=== PATIENT | male | born 1975 | race Caucasian/White ===

== ENCOUNTER 2020-05-03 08:50 | Emergency (ER) | payer SELFPAY ==
[2020-05-03] VITALS (7 sets, daily range): BP systolic 139–171; BP diastolic 70–103; PULSE 68–80; RESP 12–18; TEMP 36.6; O2SAT 93–100
--- NOTE | ~2020-05-03 | XR_ITS ---
EXAMINATION: XR chest 2V EXAM DATE: 05/03/2020 09:39 INDICATION: Right shoulder, right upper back pain. TECHNIQUE: Frontal and lateral projections of the chest obtained and reviewed. There is no prior wali dy for comparison. FINDINGS: The lungs are clear. There are no pleural effusions. The cardiomediastinal silhouette is within normal limits. There is no pneumothorax suspected. The bones and soft tissues are unremarkab le. IMPRESSION: No acute cardiopulmonary findings. Reviewed, dictated and finalized at location B. T PLACER
--- NOTE | ~2020-05-03 | CT_ITS ---
EXAMINATION: CT cervical spine wo con EXAM DATE: 05/03/2020 09:31 INDICATION: Cervical radiculopathy. Right arm numbness. TECHNIQUE: Spiral CT of the cervical spine was performed without contrast. Axial images were reviewe d. Coronal and sagittal reformatted images were also reviewed. The dose-length product (DLP) for thi s examination was 618.92 mGy-cm. The exposure was tailored according to patient size (auto mA exposu re control), and iterative reconstruction (ASIR) was used as additional dose reduction technique. ere is no prior study for comparison. FINDINGS: There is mild to moderate disc disease C3-T1, with regions of bulky hypertrophy of the pos terior longitudinal ligament, smaller regions of calcification. Hypertrophy is most pronounced chief technician ior to the C3 vertebral body where it is 3-4 mm in thickness, and the central canal is narrowed to 6 mm in AP dimension. The vertebral bodies are aligned in the AP dimension. Vertebral body heights are maintained. The odontoid process is intact. The lateral masses of C1 line up with C2. Prevertebral soft tissue and pre-dens space are within normal limits. There are no acute fractures identified. Level by level evaluation: C2-C3: There is a mild diffuse disc bulge. Uncovertebral joint arthropathy: Mild right. Facet joint arthropathy: Mild bilateral. Neural foraminal stenosis: No stenosis. Central canal stenosis: Mild. Central canal measures 7-8 mm in mid sagittal AP diameter. C3: Posterior longitudinal ligament hypertrophy with canal narrowing to 6 mm. C3-C4: There is a mild diffuse disc bulge. Uncovertebral joint arthropathy: Mild to moderate right. Facet joint arthropathy: Mild bilateral. Neural foraminal stenosis: Mild right. Central canal stenosis: Mild to moderate . Central canal measures 6 mm in mid sagittal AP diameter . C4-C5: There is a mild diffuse disc bulge. Uncovertebral joint arthropathy: Mild to moderate bilateral. Facet joint arthropathy: Mild to moderate bilateral. Neural foraminal stenosis: Mild to moderate left, mild right. Central canal stenosis: Mild . Central canal measures 8 mm in mid sagittal AP diameter . C5-C6: There is a mild diffuse disc bulge. Uncovertebral joint arthropathy: Mild bilateral. Facet joint arthropathy: Mild to moderate bilateral. Neural foraminal stenosis: Mild bilateral. Central canal stenosis: Mild . Central canal measures 7-8 mm in mid sagittal AP diameter . C6-C7: There is a mild diffuse disc bulge. Uncovertebral joint arthropathy: Mild bilateral. Facet joint arthropathy: Mild bilateral. Neural foraminal stenosis: Mild bilateral. Central canal stenosis: Mild . Central canal measures 7-8 mm in mid sagittal AP diameter . C7-T1: There is a mild diffuse disc bulge. Ossification posterior longitudinal ligament Uncovertebral joint arthropathy: Mild bilateral. Facet joint arthropathy: Mild bilateral. Neural foraminal stenosis: Mild bilateral. Central canal stenosis: Mild . Central canal measures 7 mm in mid sagittal AP diameter . IMPRESSION: 1. Mild to moderate central canal stenosis at C3-4 with bulky hypertrophy posterior longitudinal lig ament at this disc space and C3 level. 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 2. Left C4-5 neural foramina most narrowed on exam. 3. No acute findings. Reviewed, dictated and finalized at location B. NG COMMISSIONER IMPRESSION: 1. Mild to moderate central canal stenosis at C3-4 with bulky hypertrophy post erior longitudinal ligament at this disc space and C3 level. 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 2. Left C4-5 neural foramina most narrowed on exam. 3. No acute findings.
--- NOTE | 2020-05-03 08:56 | ED.UPPEXIN ---
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 Patient denies having similar symptoms, fever, chills, nausea, vomiting, headache, chest pain or back pain. Related Data Allergies Allergy/AdvReac Type Severity Reaction Status Date / Time No Known Allergies Allergy Verified 05/03/20 09:04 Review of Systems Review of Systems: Narrative: CONSTITUTIONAL: Denies fever, chills, or sweats. EYES: Denies visual changes, redness, or discharge. ENT: Denies rhinorrhea, congestion, sore throat, or otalgia. CARDIOVASCULAR: Denies chest pain, palpitations, or edema. RESPIRATORY: Denies cough or dyspnea. GASTROINTESTINAL: Denies abdominal pain, nausea, vomiting, or diarrhea. GENITOURINARY: Denies dysuria or hematuria. SKIN: Denies rash or itching. MUSCULOSKELETAL: Denies back pain, joint pain, or myalgia. NEUROLOGIC: Denies headache, numbness, or weakness. PSYCHIATRIC: Denies anxiety or depression. [facility] Social History Social History Gender identity (if verbalized by the patient): Male Exam Narrative: Exam Narrative: General appearance: Well-developed, well-nourished, looks in pain Skin: Normal color Head: Normocephalic, nontraumatic Eyes: Clear conjunctiva ENT: Oropharynx normal, ears normal, nose normal Neck: Supple, nontender Chest and respiratory: Airway patent, no respiratory distress, no accessory muscle use Heart: Regular rate/rhythm Vascular: Normal peripheral pulses, normal capillary refill. Musculoskeletal: Right upper extremity showed slight limited range of motion because of pain, diffuse pain right supraclavicular area and right upper back. No bruises, no swelling, no rash. Neurologic: Alert and oriented ?3, handgrip is 4 out of 5 of the right hand. Radial pulse is intact Course Course Emergency Course: Improving Reevaluation(s) Reevaluation #1: Improving Date: 05/03/20 Time: 10:26 Vital Signs Vital signs: Vital Signs Temperature 36.6 C 05/03/20 09:01 Pulse Rate 75 05/03/20 09:01 Respiratory Rate 18 05/03/20 09:01 Blood Pressure 171/103 H 05/03/20 09:01 Pulse Oximetry 100 05/03/20 09:01 Temperature 36.6 C 05/03/20 09:01 Pulse Rate 68 05/03/20 09:56 Respiratory Rate 17 05/03/20 09:56 Blood Pressure 139/99 H 05/03/20 09:56 Pulse Oximetry 100 05/03/20 09:56 MDM - Extremity Injury (Upper) MDM Narrative Medical decision making narrative: Right upper extremity pain radiating to the fingers, cervical radiculopathy is my concern. CT cervical spine, chest x-ray, IV Toradol, Dilaudid, Zofran and Decadron ordered. Further plan to follow Differential Diagnosis Differential diagnosis: Likely other (Cervical radiculopathy, musculoskeletal strain/sprain) Critical Care Time Critical Care Time Critical Care Time: Yes Total Critical Care Time: 30 Discharge Plan Discharge Clinical Impression: Cervical radiculopathy Patient Disposition: Home, Self-Care Condition: Stable Instructions: Cervical Radiculopathy (ED) Additional Instructions: Return if symptoms are worsening , call your family physician for appointment, take Tylenol as as needed for aches and pa
[2020-05-03] MEDS: HYDROmorphone HCL INJ (*CRX) 1 MG/ML SYR 0.5 MG IV PUSH (09:51)
[2020-05-03] MEDS: ONDANSETRON INJ 4 MG/2 ML VIAL IV PUSH (09:51)
[2020-05-03] MEDS: KETOROLAC 30 MG/ML VIAL (*BKC) IV PUSH (09:51)
== END 2020-05-03 10:55 | disposition home or self-care (01) ==
PROVIDERS: Emergency Provider Emergency Medicine
DX: M54.12 Radiculopathy, cervical region (principal)
CPT/HCPCS: 71046; 72125; 96374; 96375; 99284; J1100; J1170; J1885; J2405

== ENCOUNTER 2021-11-04 11:38 | Emergency (ER) | payer OTHER, SELFPAY ==
--- NOTE | ~2021-11-04 | CT_ITS ---
EXAMINATION: CT lumbar spine wo con DATE: 11/04/2021 12:12 INDICATION: Low back pain. Lower extremity weakness. TECHNIQUE: Computed tomography (CT) of the lumbar spine was performed without intravenous contrast. A utomated exposure control and iterative reconstruction technique were employed. The dose-length produ ct was 1270.49 mGy-cm. COMPARISON: None FINDINGS: There is 3 degrees dextrocurvature of lumbar spine. Vertebral body heights are normal. Ther e is mildly decreased disc height from L3-L4 through L5-S1. The following disc levels are specificall y discussed: L1-L2: The disc does not extend beyond the endplate margin. There is mild right and moderate left fac et joint osteoarthritis. There is no neural foraminal stenosis. There is no central canal stenosis. L2-L3: The disc is bulging. There is mild bilateral facet joint osteoarthritis. There is mild bilater al neural foraminal stenosis. There is mild central canal stenosis. L3-L4: The disc is bulging. There is severe bilateral facet joint osteoarthritis. There is mild bilat eral neural foraminal stenosis. There is mild central canal stenosis. L4-L5: The disc is bulging. There is severe bilateral facet joint osteoarthritis. There is moderate b ilateral neural foraminal stenosis. There is mild central canal stenosis. L5-S1: The disc is bulging. There is mild bilateral facet joint osteoarthritis. There is moderate sanchez ateral neural foraminal stenosis. There is mild central canal stenosis. IMPRESSION: 1. Moderate lower lumbar spondylosis. Reviewed, dictated and finalized at location A.
[2021-11-04 11:39] VITALS: BP 168/109; PULSE 70; RESP 16; TEMP 36.9; O2SAT 100
[2021-11-04] MEDS: diazePAM INJ (*CRX) 10 MG/2 ML SYRINGE 5 MG IV PUSH (12:20)
[2021-11-04] MEDS: KETOROLAC 30 MG/ML VIAL (*BKC) IV PUSH (12:20)
--- NOTE | 2021-11-04 12:53 | ED.BACK ---
HPI - Back Pain/Injury General Chief Complaint: Back Pain/Injury Stated Complaint: back is out again Time Seen by Provider: 11/04/21 11:50 Source: RN notes reviewed History of Present Illness HPI Narrative: Patient presents emergency room from home for lower back pain. Patient states he woke with pain in his bilateral lower back worse on the left the pain is described as aching in nature states the pain does not radiate he denies any known trauma or injury states he has a history of a bad back with slipped disc from several years ago but states he has had no symptoms recently until today he denies any fevers or chills abdominal pain numbness or tingling in the extremities bowel or bladder incontinence or any other symptoms or concern. States did not take anything for the pain Related Data Home Medications Medication Instructions Recorded Confirmed Januvia 11/04/21 11/04/21 Jublia 11/04/21 Lipitor 11/04/21 metformin 11/04/21 Allergies Allergy/AdvReac Type Severity Reaction Status Date / Time No Known Allergies Allergy Verified 11/04/21 11:42 Review of Systems Review of Systems: Gen.: Denies fevers or chills ENT: Denies congestion Respiratory: Denies shortness of breath or cough CV: Denies chest pain or palpitations GI: Denies abdominal pain nausea, emesis denies incontinence Musculoskeletal: See HPI Neuro: Denies numbness, tingling, weakness or focal weakness Skin: Denies rash Except as documented, all other systems reviewed and negative [facility] Past Medical History Medical History (Updated 11/04/21 @ 12:57 by Ramana Woody DO) Patient denies significant medical history Social History Social History (Updated 11/04/21 @ 12:56 by Ramana Woody DO) Smoking status: Never smoker Gender identity (if verbalized by the patient): Male Exam Narrative: APPEARANCE: No acute distress, nontoxic, resting in bed Eyes: EOMI HEENT: Normocephalic, atraumatic, CV: Regular rate and rhythm without murmur RESPIRATORY: No respiratory distress. Clear to auscultation bilaterally. Abdomen: Soft and nontender, no rebound or guarding MUSCULOSKELETAl: Moves all extremities, no clubbing cyanosis or edema Back: No midline lumbar tenderness to palpation or step-off, tender to palpation over bilateral worse on left paravertebral muscles L3-5 , pain increased with forward flexion NEURO: Awake and alert. Following commands, speech normal, no focal deficits, muscle strength 5 out of 5 bilateral lower extremities SKIN:: Warm, dry. Normal Color no rash or lesions Course Course Emergency Course: Patient states he is feeling much better Discussed with patient results of workup and diagnosis. Discussed need for follow-up with primary care, proper use of medication, and reasons to return to the emergency department. Patient understands and agrees to current treatment plan Vital Signs Vital signs: Vital Signs Temperature 98.5 F 11/04/21 11:39 Pulse Rate 70 11/04/21 11:39 Respiratory Rate 16 11/04/21 11:39 Blood Pressure 168/109 H 11/04/21 11:39 Pulse Oximetry 100 11/04/21 11:39 Oxygen Delivery Room Air 11/04/21 11:39 Temperature 98.5 F 11/04/21 11:39 Pulse Rate 70 11/04/21 11:39 Respiratory Rate 16 11/04/21 11:39 Blood Pressure 168/109 H 11/04/21 11:39 Pulse Oximetry 100 11/04/21 11:39 Oxygen Delivery Room Air 11/04/21 11:39 Discharge Plan Discharge Clinical Impression: Low back pain Patient Disposition: Home, Self-Care Condition: Stable Instructions: Antibiotic Form, Acute Low Back Pain (ED) Additional Instructions: Return for increasing pain numbness or tingling in the extremities bowel or bladder incontinence or any other symptoms of concern Prescriptions: New cyclobenzaprine 10 mg tablet 10 mg PO TID PRN (Reason: muscle spasm) Qty: 8 0RF ibuprofen 600 mg tablet 600 mg PO TID PRN (Reason: pain) Qty: 14 0RF No Action Monika
== END 2021-11-04 13:08 | disposition home or self-care (01) ==
PROVIDERS: Emergency Provider Emergency Medicine; PCP Internal Medicine
DX: M54.50 Low back pain, unspecified (principal); Z79.84 Long term (current) use of oral hypoglycemic drugs
CPT/HCPCS: 72131; 96374; 96375; 99284; J1885; J3360